=== PATIENT | male | born 1995 | race Caucasian/White ===

== ENCOUNTER 2017-01-01 19:35 | Emergency (ER) | payer SELFPAY ==
[2017-01-01 19:50] VITALS: O2SAT 98
[2017-01-01] MEDS ORDERED: ZOFRAN ODT 4 MG PO ONE (20:07)
--- NOTE | 2017-01-01 20:11 | ERPHSYRPT ---
- History of Present Illness Time Seen by Provider: 01/01/17 20:05 Historian: patient, family Exam Limitations: no limitations Patient Subjective Stated Complaint: pt states he has had diarrhea approx 6-7 times for the past 2 weeks. Triage Nursing Assessment: pt alert and oriented. answers questions approp. pt ambulatory with steady gait noted. respirations nonlabored with lungs cta. abd soft and nontendedr to palpation. bowel sounds present in all 4 quads. pt states he is passing flatus Physician History: pt is 21 year old male with diarrhea and cramping pain for one week 6-7 stools described as black per day; some N no V possible fever, no one else sick at home; and has minimal tenderness at epigastrium without rebound or peritoneal signs , non distended and schaphoid in appearance; no prior surgery on abd; no recent abd trauma , no resp flu symptoms. reported hx of hep c is noted and pt advised to f/u PCP and have GI referral for tx. Timing/Duration: day(s), intermittent Activities at Onset: none Quality: cramping Abdominal Pain Onset Location: LLQ, epigastric Pain Radiation: no radiation Severity of Pain-Max: moderate Severity of Pain-Current: mild Modifying Factors: Improves With: nothing Associated Symptoms: diarrhea, nausea Previous symptoms: same symptoms as today Allergies/Adverse Reactions: diphenhydramine [From Benadryl] Allergy (Verified 01/01/17 19:53) antidepressant Allergy (Uncoded 01/01/17 19:53) pt cant remember which one Home Medications: No Home Meds 1 [facility] UD 01/01/17 [History] Hx Tetanus, Diphtheria Vaccination/Date Given: Yes Hx Influenza Vaccination/Date Given: No Hx Pneumococcal Vaccination/Date Given: No - Review of Systems Constitutional: Fever, No Chills Eyes: No Symptoms Ears, Nose, & Throat: No Symptoms Respiratory: No Cough, No Dyspnea Cardiac: No Chest Pain, No Edema, No Syncope Abdominal/Gastrointestinal: Abdominal Pain, Nausea, Diarrhea, No Vomiting Genitourinary Symptoms: No Dysuria Musculoskeletal: No Back Pain, No Neck Pain Skin: No Rash Neurological: No Dizziness, No Focal Weakness, No Sensory Changes Psychological: No Symptoms Endocrine: No Symptoms All Other Systems: Reviewed and Negative - Past Medical History Pertinent Past Medical History: Yes Neurological History: No Pertinent History ENT History: No Pertinent History Cardiac History: No Pertinent History Respiratory History: Asthma, Bronchitis Endocrine Medical History: No Pertinent History Musculoskeletal History: No Pertinent History GI Medical History: Hepatitis History: No Pertinent History Psycho-Social History: Anxiety, Depression, Panic Disorder Male Reproductive Disorders: No Pertinent History Other Medical History: History of overdose, drug abuse and suicide attempts., hep c - Past Surgical History Past Surgical History: Yes Neuro Surgical History: No Pertinent History Cardiac: No Pertinent History Respiratory: No Pertinent History Gastrointestinal: No Pertinent History Genitourinary: No Pertinent History Musculoskeletal: Orthopedic Surgery Male Surgical History: No Pertinent History Other Surgical History: EYE SURGERY, left knee surgery - Social History Smoking Status: Current every day smoker How long have you smoked: 11 Exposure to second hand smoke: Yes Alcohol Use: Socially Drug Use: marijuana, bath salts, methamphetamines, narcotics, cocaine, heroin Patient Lives Alone: No Significant Family History: no pertinent family hx - Nursing Vital Signs Nursing Vital Signs: Initial Vital Signs Temperature 98.9 F Temperature Source Oral Pulse Rate 95 Respiratory Rate 18 Blood Pressure [Right Arm] 134/77 Pain Intensity 0 - Physical Exam General Appearance: no apparent distress, alert Eye Exam: PERRL/EOMI, eyes nml inspection Ears, Nose, Throat Exam: normal ENT inspection, pharynx normal, moist mucous membranes Neck Exam: normal inspection, non-tender, supple, full range of motion Respiratory Exam: normal breath sounds, lungs clear, No respiratory distress Cardiovascular Exam: regular rate/rhythm, normal heart sounds Gastrointestinal/Abdomen Exam: soft, tenderness (epigastric tenderenss), No mass Back Exam: normal inspection, normal range of motion, No CVA tenderness, No vertebral tenderness Extremity Exam: normal inspection, normal range of motion, pelvis stable Neurologic Exam: alert, oriented x 3, cooperative, normal mood/affect, nml cerebellar function, sensation nml, No motor deficits Skin Exam: normal color, warm, dry SpO2: 98 Oxygen Delivery: Room Air - Course Nursing assessment & vital signs reviewed: Yes Ordered Tests: Active Orders 24 hr Category Date Time Status Orthostatic Vital Signs STAT Care 01/01/17 20:05 Active CBC W DIFF Stat Lab 01/01/17 20:03 Completed CMP Stat Lab 01/01/17 20:21 Completed LIPASE Stat Lab 01/01/17 20:21 Completed Lactic Acid Urgent Lab 01/01/17 20:13 Completed Occult Blood,Stool Other Stat Lab 01/01/17 20:29 Completed UA Stat Lab 01/01/17 20:23 Completed Medication Summary Discontinued Medications Generic Name Dose Route Start Last Admin Trade Name Neida PRN Reason Stop Dose Admin Ondansetron HCl 4 mg 01/01/17 20:07 01/01/17 20:21 Zofran Odt 4 Mg PO 01/01/17 20:08 4 mg STAT ONE Administration Ondansetron HCl Confirm 01/01/17 20:19 Zofran Odt 4 Mg Administered 01/01/17 20:20 Dose 4 mg .ROUTE .STpickrset-MED ONE Lab/Rad Data: Laboratory Result Diagrams 01/01/17 20:03 01/01/17 20:21 Laboratory Results 01/01/17 01/01/17 01/01/17 Range/Units 20:29 20:23 20:21 WBC (4.0-10.5) K/mm3 RBC (4.1-5.6) M/mm3 Hgb (12.5-18.0) gm/dl Hct (42-50) % MCV (78-100) fl MCH (26-32) pg MCHC (32-36) g/dl RDW (11.5-14.0) % Plt Count (150-450) K/mm3 MPV (6-9.5) fl Gran % (36.0-66.0) % Lymphocytes % (24.0-44.0) % Monocytes % (0.0-12.0) % Eosinophils % (0.00-5.0) % Basophils % (0.0-0.4) % Basophils # (0-0.4) Sodium 147 H (136-145) mEq/L Potassium 4.1 (3.5-5.1) mEq/L Chloride 108 H (98-107) mEq/L Carbon Dioxide 29.9 (21-32) mEq/L Anion Gap 13.1 (5-15) MEQ/L BUN 10 (9-20) mg/dL Creatinine 0.77 (0.55-1.30) mg/dl Estimated GFR > 60 ML/MIN Glucose 82 (70-110) MG/DL Lactic Acid (0.4-2.0) Calcium 8.9 (8.5-10.1) mg/dL Total Bilirubin 0.3 (0.2-1.0) mg/dL AST 15 (15-37) U/L ALT 13 (12-78) U/L Alkaline Phosphatase 86 (46-116) U/L Serum Total Protein 6.9 (6.4-8.2) gm/dL Albumin 3.9 (3.4-5.0) g/dL Lipase 139 (73-393) U/L Ur Collection Type CLEAN CATCH Urine Color YELLOW (YELLOW) Urine Appearance SLIGHTLY CLOUDY (CLEAR) Urine pH 7.0 (5-6) Ur Specific [place] 1.025 (1.005-1.025) Urine Protein NEGATIVE (Negative) Urine Glucose (UA) NEGATIVE (NEGATIVE) mg/dL Urine Ketones NEGATIVE (NEGATIVE) Urine Nitrite NEGATIVE (NEGATIVE) Urine Bilirubin NEGATIVE (NEGATIVE) Urine Urobilinogen 1 (0-1) mg/dL Urine WBC (Auto) NEGATIVE (NEGATIVE) Urine RBC (Auto) NEGATIVE (0-5) Gilson/ul Stool Occult Blood NEGATIVE (Negative) Specimen Received 01/01/17202401/01/17 01/01/17 Range/Units 20:13 20:03 WBC 10.5 (4.0-10.5) K/mm3 RBC 4.82 (4.1-5.6) M/mm3 Hgb 14.6 (12.5-18.0) gm/dl Hct 43.3 (42-50) % MCV 89.8 (78-100) fl MCH 30.3 (26-32) pg MCHC 33.7 (32-36) g/dl RDW 12.7 (11.5-14.0) % Plt Count 225 (150-450) K/mm3 MPV 9.4 (6-9.5) fl Gran % 72.4 H (36.0-66.0) % Lymphocytes % 15.0 L (24.0-44.0) % Monocytes % 10.4 (0.0-12.0) % Eosinophils % 2.0 (0.00-5.0) % Basophils % 0.2 (0.0-0.4) % Basophils # 0.02 (0-0.4) Sodium (136-145) mEq/L Potassium (3.5-5.1) mEq/L Chloride (98-107) mEq/L Carbon Dioxide (21-32) mEq/L Anion Gap (5-15) MEQ/L BUN (9-20) mg/dL Creatinine (0.55-1.30) mg/dl Estimated GFR ML/MIN Glucose (70-110) MG/DL Lactic Acid 0.9 (0.4-2.0) Calcium (8.5-10.1) mg/dL Total Bilirubin (0.2-1.0) mg/dL AST (15-37) U/L ALT (12-78) U/L Alkaline Phosphatase (46-116) U/L Serum Total Protein (6.4-8.2) gm/dL Albumin (3.4-5.0) g/dL Lipase (73-393) U/L Ur Collection Type Urine Color (YELLOW) Urine Appearance (CLEAR) Urine pH (5-6) Ur Specific [place] (1.005-1.025) Urine Protein (Negative) Urine Glucose (UA) (NEGATIVE) mg/dL Urine Ketones (NEGATIVE) Urine Nitrite (NEGATIVE) Urine Bilirubin (NEGATIVE) Urine Urobilinogen (0-1) mg/dL Urine WBC (Auto) (NEGATIVE) Urine RBC (Auto) (0-5) Gilson/ul Stool Occult Blood (Negative) Specimen Received - Progress Progress: improved, re-examined Progress Note: 01/01/17 20:33 discussed risk /benefit of ab tx and cipro small risk of tendon rupture and pt wishes to proceed; will hold off til in am after zofran out of system to begin. 01/01/17 21:02 the pt declined to wait for the completion of his workup in ER; he has the mental status /capacity to make this choice and was advised that undetected pathology could still be evolving and of the need for further w/u and Tx with PCPs and GI; he understands and makes this choice of DC without furhter w/u or Tx in ER at this time; ; Counseled pt/family regarding: lab results, diagnosis, need for follow-up - Departure Time of Disposition: 20:41 Departure Disposition: Home Clinical Impression: Diarrhea Condition: Good Critical Care Time: No Referrals: ARIEL VASQUEZ MD [Primary Care Provider] - Instructions: Diarrhea and Traveler's Diarrhea -- Adult Additional Instructions: followup with your DrPaola for further evaluation and treatment of diarrhea, may require further cultures, and for tx of Hep C, and workup of other medical conditions. return meantime if not improving or further symptoms of concern, vomiting, blood or other concerns meantime. followup with your Dr. for elevated liver enzymes and other abnormalties. you have left prior to completion of workup and treatment , but have that choice. Undetected problems may still be evolving and do require followup. Prescriptions: Ciprofloxacin HCl 500 mg [Cipro 500 MG] 500 mg PO BID #10 tablet
[2017-01-01] MEDS ORDERED: ZOFRAN ODT 4 MG ONE (20:19)
[2017-01-01 20:20] LABS: BASOPHIL % 0.2 % (0.0-0.4); Granulocytes % 72.4 % (36.0-66.0); Mean Cell Volume 89.8 fl (78-100); Mean Corpuscular Hemoglobin 30.3 pg (26-32); Mean Platelet Volume 9.4 fl (6-9.5); Monocytes % 10.4 % (0.0-12.0); Platelet Count 225 K/mm3 (150-450); Red Blood Count 4.82 M/mm3 (4.1-5.6); Red Cell Distribution Width 12.7 % (11.5-14.0); White Blood Count 10.5 K/mm3 (4.0-10.5)
[2017-01-01 20:27] LABS: COMPLETE URINE MICROSCOPIC? NO; Collection Type CLEAN CATCH
[2017-01-01 20:28] VITALS: BP 134/77; PULSE 95
[2017-01-01 20:40] LABS: ALBUMIN 3.9 g/dL (3.4-5.0); ALKALINE PHOSPHATASE 86 U/L (46-116); ANION GAP 13.1 MEQ/L (5-15); BILIRUBIN,TOTAL 0.3 mg/dL (0.2-1.0); BLOOD UREA NITROGEN 10 mg/dL (9-20); CHLORIDE 108 mEq/L (98-107); Carbon Dioxide 29.9 mEq/L (21-32); Glucose 82 MG/DL (70-110); LIPASE 139 U/L (73-393); Potassium 4.1 mEq/L (3.5-5.1); SGOT/AST 15 U/L (15-37); SGPT/ALT 13 U/L (12-78); SODIUM 147 mEq/L (136-145); Total Protein 6.9 gm/dL (6.4-8.2)
== END 2017-01-01 21:23 | disposition home or self-care (01) ==
LOC: ED 19:35
DX: R19.7 Diarrhea, unspecified (principal)
CPT/HCPCS: 36415; 80053; 81002; 82272; 83605; 83690; 85025; 99284; Q0162

== ENCOUNTER 2025-08-15 01:25 | Emergency (ER) | payer MEDICAID, OTHER ==
[2025-08-15 01:45] VITALS: TEMP 97.1; O2SAT 100
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
[2025-08-15] MEDS ORDERED: PRADAXA 75 MG PO ONE (02:15)
[2025-08-15] MEDS: PRADAXA 75 MG PO ONE (02:26)
[2025-08-15] MEDS ORDERED: PERCOCET TABLET 5/325MG ONE (02:27)
[2025-08-15] MEDS: PERCOCET TABLET 5/325MG PO STA (02:27)
[2025-08-15 03:16] VITALS: BP 132/80; PULSE 102; RESP 18
== END 2025-08-15 03:16 | disposition home or self-care (01) ==
LOC: ED 01:25
DX: R52 Pain, unspecified (principal); Z91.148 Patient's other noncompliance with medication regimen for other reason; Z79.02 Long term (current) use of antithrombotics/antiplatelets; Z79.899 Other long term (current) drug therapy; Z72.0 Tobacco use